=== PATIENT | female | born 1990 | race Caucasian/White ===

== ENCOUNTER 2021-10-30 07:39 | Day surgery (SDC) | payer MEDICAID ==
[~2021-10-30 07:39] MED LIST: Lidocaine 2% 5 ML SDV ONE; Propofol 200 MG/20 ML SDV ONE; fentaNYL 100 MCG/2 ML SDV ONE
[2021-10-30] MEDS ORDERED: Propofol 200 MG/20 ML SDV ONE (09:21)
== END 2021-10-30 09:57 | disposition home or self-care (01) ==
LOC: MW.SDS 07:39
PROVIDERS: ATTEND Surgery
DX: K21.9 Gastro-esophageal reflux disease without esophagitis (principal); R10.13 Epigastric pain; R14.0 Abdominal distension (gaseous); G89.29 Other chronic pain; M62.08 Separation of muscle (nontraumatic), other site; E03.9 Hypothyroidism, unspecified; E66.9 Obesity, unspecified; Z98.890 Other specified postprocedural states
CPT/HCPCS: 43239; 81025; J2704; J3010; 00731

== ENCOUNTER 2022-01-15 12:06 | Day surgery (SDC) | payer MEDICAID ==
[~2022-01-15 12:06] MED LIST changes: +Lactated Ringers 1,000 ML IV SCH; -Lidocaine 2% 5 ML SDV ONE; -Propofol 200 MG/20 ML SDV ONE; +Sodium Chloride 0.9% 10 ML Syringe FLUSH PRN; +Sodium Chloride 0.9% 2.5 ML Syringe FLUSH PRN; +Sodium Chloride 0.9% 20 ML SDV IV PRN; +cefOXitin 2 GM in Premix Bag 1 BAG IV ONE; -fentaNYL 100 MCG/2 ML SDV ONE
[2022-01-15] MEDS ORDERED: Scopolamine 1.5 MG Transdermal Patch TOP ONE (12:16)
[2022-01-15] MEDS ORDERED: fentaNYL 250 MCG/5 ML SDV ONE ×2 (12:53→13:33)
[2022-01-15] MEDS ORDERED: Propofol 200 MG/20 ML SDV ONE ×2 (12:53→14:06)
[2022-01-15] MEDS ORDERED: Bupivacaine 0.5% 30 ML SDV ONE (12:55)
[2022-01-15] MEDS ORDERED: Metoclopramide 10 MG/2 ML SDV IVPUSH PRN (13:14)
[2022-01-15] MEDS ORDERED: Albuterol 0.083% 2.5 MG/3 ML Neb Soln NEB PRN (13:14)
[2022-01-15] MEDS ORDERED: fentaNYL 50 MCG/ML SDV IVPUSH PRN (13:14)
[2022-01-15] MEDS ORDERED: HYDROmorphone 1 MG/ML Syringe IVPUSH PRN (13:14)
[2022-01-15] MEDS ORDERED: Naloxone 0.4 MG/ML SDV IVPUSH PRN (13:14)
[2022-01-15] MEDS ORDERED: Ondansetron 4 MG/2 ML SDV IVPUSH PRN (13:14)
[2022-01-15] MEDS ORDERED: Indocyanine Green 25 MG SDV ONE (13:33)
[2022-01-15] MEDS ORDERED: fentaNYL 100 MCG/2 ML SDV ONE (14:01)
[2022-01-15] MEDS ORDERED: Rocuronium Bromide 50 MG/5 ML Syringe ONE (14:28)
[2022-01-15] MEDS ORDERED: HYDROmorphone 2 MG/ML Syringe ONE (14:28)
[2022-01-15] MEDS ORDERED: Dexamethasone 4 MG/ML 5 ML MDV ONE (14:28)
[2022-01-15] MEDS ORDERED: Ondansetron 4 MG/2 ML SDV ONE (14:28)
[2022-01-15] MEDS ORDERED: Ketorolac 30 MG/ML SDV ONE (14:28)
[2022-01-15] MEDS ORDERED: Sugammadex Sodium 200 MG/2 ML VIAL ONE (14:28)
[2022-01-15] MEDS ORDERED: Acetaminophen/oxyCODONE 325-5 MG Tab PO ONE (15:42)
== END 2022-01-15 17:10 | disposition home or self-care (01) ==
LOC: MW.SDS 12:06
PROVIDERS: ATTEND Surgery
DX: K80.10 Calculus of gallbladder with chronic cholecystitis without obstruction (principal); K42.9 Umbilical hernia without obstruction or gangrene; K82.8 Other specified diseases of gallbladder; Z79.899 Other long term (current) drug therapy; Z79.890 Hormone replacement therapy; Z98.890 Other specified postprocedural states
CPT/HCPCS: 47562; 81025; A9270; J0131; J1100; J1170; J1885; J2405; J2704; J3010; J3490; J7030; J7120; 00790

== ENCOUNTER 2022-06-09 08:18 | Day surgery (SDC) | payer MEDICAID ==
[~2022-06-09 08:18] MED LIST changes: +Albuterol 0.083% 2.5 MG/3 ML Neb Soln NEB PRN; +HYDROmorphone 1 MG/ML Syringe IVPUSH PRN; +Metoclopramide 10 MG/2 ML SDV IVPUSH PRN; +Morphine 2 MG/ML SYRINGE IVPUSH PRN; +Naloxone 0.4 MG/ML SDV IVPUSH PRN; +Ondansetron 4 MG/2 ML SDV IVPUSH PRN; +Propofol 200 MG/20 ML SDV ONE; +Ropivacaine 0.5% 5 MG/ML 30 ML SDV ONE; +ceFAZolin 2 GM in Premix Bag 1 BAG IV ONE; -cefOXitin 2 GM in Premix Bag 1 BAG IV ONE; +fentaNYL 100 MCG/2 ML SDV ONE; +fentaNYL 250 MCG/5 ML SDV ONE; +fentaNYL 50 MCG/ML SDV IVPUSH PRN
[2022-06-09] MEDS ORDERED: Propofol 200 MG/20 ML SDV ONE ×3 (08:33→11:07)
[2022-06-09] MEDS ORDERED: Lidocaine 2% 11 ML Jelly Filled Syringe ONE (08:46)
[2022-06-09] MEDS ORDERED: Scopolamine 1.5 MG Transdermal Patch TRDERM PRN (08:52)
[2022-06-09] MEDS ORDERED: Scopolamine 1.5 MG Transdermal Patch ONE (08:55)
[2022-06-09] MEDS ORDERED: Bupivacaine 0.5% 30 ML SDV ONE (08:55)
[2022-06-09] MEDS ORDERED: Rocuronium Bromide 50 MG/5 ML Syringe ONE (09:15)
[2022-06-09] MEDS ORDERED: fentaNYL 250 MCG/5 ML SDV ONE (09:25)
[2022-06-09] MEDS ORDERED: ceFAZolin 2 GM Vial ONE (09:42)
[2022-06-09] MEDS ORDERED: Dexamethasone 4 MG/ML 5 ML MDV ONE (09:54)
[2022-06-09] MEDS ORDERED: Ketorolac 30 MG/ML SDV ONE (09:54)
[2022-06-09] MEDS ORDERED: Lidocaine 2% 5 ML SDV ONE (09:54)
[2022-06-09] MEDS ORDERED: Ondansetron 4 MG/2 ML SDV ONE (09:54)
[2022-06-09] MEDS ORDERED: fentaNYL 100 MCG/2 ML SDV ONE ×2 (10:01→10:05)
[2022-06-09] MEDS ORDERED: HYDROmorphone 2 MG/ML Syringe ONE (11:04)
[2022-06-09] MEDS ORDERED: Sugammadex Sodium 200 MG/2 ML VIAL ONE (11:20)
[2022-06-09] MEDS ORDERED: Ondansetron 4 MG Tab.DIS PO ONE (13:56)
[2022-06-09] MEDS ORDERED: Ondansetron 4 MG Tab.DIS ONE (14:07)
== END 2022-06-09 15:00 | disposition home or self-care (01) ==
LOC: MW.SDS 08:18
PROVIDERS: ATTEND Surgery
DX: K43.2 Incisional hernia without obstruction or gangrene (principal); J45.909 Unspecified asthma, uncomplicated; E03.9 Hypothyroidism, unspecified; E66.9 Obesity, unspecified; F41.9 Anxiety disorder, unspecified; G43.909 Migraine, unspecified, not intractable, without status migrainosus; Z79.899 Other long term (current) drug therapy; Z90.49 Acquired absence of other specified parts of digestive tract; Z98.890 Other specified postprocedural states; Z79.890 Hormone replacement therapy
CPT/HCPCS: 49593; 81025; A9270; J0690; J1100; J1170; J1885; J2405; J2704; J2795; J3010; J3490; J7120; 00790; 64488; C1781